=== PATIENT | male | born 1980 | race Caucasian/White ===

== ENCOUNTER 2016-12-12 22:08 | Emergency (ER) | payer BC ==
[~2016-12-12] VITALS: Ht 177.8 cm; Wt 106.1 kg
[~2016-12-12 22:08] MED LIST: CETI10CA PO; IBUP200C92 PO; LEVO750T24 PO; OXYC-12 PO
[2016-12-12] MEDS ORDERED: HYDR-3820 PO (22:24)
--- NOTE | 2016-12-12 22:43 | ED Lower Extremity ---
General Chief Complaint: Lower Extremity Stated Complaint: L ANKLE INJ/SWELLING Nursing Triage Note: c/o L ankle pain after rolling it 8 days ago. patient reports was in [place] when this happened, patient was seen in ED there, patient was given crutches and ankle brace. patient reports was told to follow up his primary but just returned tonight from [place] [facility] Sepsis Screen: No Definite Risk History of Present Illness Time seen by provider: 22:30 Initial Comments Follow up for left ankle sprain 8 days ago in [place]. Patient alternated driving home from [place], when not driving, he elevated the foot on dashboard and reclined his seat Onset: last week Pain/Injury Location: left ankle Method of Injury: twisted Modifying Factors: Improves With Immobilization, Improves With Pain Medication (Hydrocodone 10 mg), Improves With Rest Allergies and Home Medications Allergies Coded Allergies: Soap (Unverified Adverse Reaction, Intermediate, 07/05/13) povidone-iodine (Unverified Adverse Reaction, Intermediate, 07/05/13) Home Medications Cetirizine Hcl 10 Mg Capsule 10 MG PO DAILY PRN PRN (Reported) Hydrocodone/Acetaminophen 1 Each Tablet 1 EACH PO (Reported) Ibuprofen 200 Mg Capsule 600 MG PO PRN (Reported) Constitutional: no symptoms reported see HPI EENTM: no symptoms reported see HPI Respiratory: no symptoms reported see HPI Cardiovascular: no symptoms reported see HPI Gastrointestinal: no symptoms reported see HPI Genitourinary: no symptoms reported Musculoskeletal: see HPI joint pain (Left ankle) Skin: see HPI other (Marked swlling left ankle and foot) Psychiatric/Neurological: No Symptoms Reported See HPI All Other Systems Reviewed Negative Unless Noted: Yes Past Jobncbw-Jqcykw-Sttxim Hx Patient Social History Alcohol Use: Rarely Uses Recreational Drug Use: No Smoking Status: Never a Smoker Recent Foreign Travel: No Contact w/Someone Who Travel: No Recent Infectious Disease Expo: No Recent Hopitalizations: No Physical Abuse Screen: No Sexual Abuse: No Immunizations Up To Date Tetanus Booster (TDap): More than 5yrs Surgeries HX Surgeries: Yes Surgeries: Gallbladder Respiratory Hx Respiratory Disorders: No Cardiovascular Hx Cardiac Disorders: No Neurological Hx Neurological Disorders: No Reproductive System Hx Reproductive Disorders: No Sexually Transmitted Disease: No HIV/AIDS: No Genitourinary Hx Genitourinary Disorders: No Gastrointestinal Hx Gastrointestinal Disorders: Yes (admitted 1 1/2 yr ago for dehydration/ diarrhea) Musculoskeletal Hx Musculoskeletal Disorders: No Endocrine Hx Endocrine Disorders: No HEENT HX ENT Disorders: Yes (tonsils removed as a child) HEENT Disorders: Tonsilitis Cancer Hx Cancer: No Psychosocial Hx Psychiatric Problems: No Integumentary HX Skin/Integumentary Disorder: No Blood Transfusions Hx Blood Disorders: No Reviewed Nursing Assessment Reviewed/Agree w Nursing PMH: Yes Physical Exam Vital Signs Vital Sign - Last 12Hours 12/12/16 22:13 Temp 98.6 Pulse 82 Resp 18 B/P 159/99 Pulse Ox 97 O2 Delivery Room Air Capillary Refill : Less Than 3 Seconds General Appearance: WD/WN no apparent distress Neck: full range of motion normal inspection Cardiovascular: regular rate, rhythm no murmur Respiratory: chest non-tender lungs clear Ankles: left ankle ecchymosis, left ankle limited range of motion (Secondary to pain and swelling), left ankle pain (Soft tissue, lateral ankle), left ankle soft tissue tenderness, left ankle swelling (Marked left foot), left ankle other (Pedal pulses 2+, cap refill toes <2 sec bilat, 2+ anterior drawer. Tender over ATFL, no tenderness med/lat maleolous. Negative Homans. ) Feet: left foot pain, left foot swelling Neurologic/Tendon: normal sensation normal motor functions normal tendon functions Neurologic/Psychiatric: no motor/sensory deficits alert normal mood/affect oriented x 3 Skin: normal color warm/dry Lymphatic: no adenopathy Progress/Results/Core Measures Results/Orders Vital Signs/I&O Vital Sign - Last 12Hours 12/12/16 22:13 Temp 98.6 Pulse 82 Resp 18 B/P 159/99 Pulse Ox 97 O2 Delivery Room Air Blood Pressure Mean: 119 Diagnostic Imaging Diagonstic Imaging: Xray Plain Films/CT/US/NM/MRI: ankle Comments No fx, d/l or mohsen abnormality, joint spaces maintained. Soft tissue swelling noted. Reviewed: Reviewed by Me Departure Impression Impression: Primary Impression: Ankle sprain Qualified Code: S93.412D - Sprain of calcaneofibular ligament of left ankle, subsequent encounter Disposition: HOME, SELF-CARE Condition: Stable Departure-Patient Inst. Decision time for Depature: 22:50 Referrals: WINNIE RICCI MD (PCP/Family) Primary Care Physician Patient Instructions: Ankle Sprain (DC) Add. Discharge Instructions: All discharge instructions reviewed with patient and/or family. Voiced understanding. Ice and elevate left ankle/foot 20 min every 2-4 hours. Ibuprofen 600 mg every 8 hours. If not taking Hydrocodone Prescription, use Tylenol 650 mg every 4-6 hours for pain. Follow up with Dr. Ricci in 2 weeks. Gentle ROM to left ankle. Progress to weight bearing as tolerated and wean off crutches, as tolerated. Consider knee high support hose, for swelling. Copy Copies To 1: WINNIE RICCI MD, AMY ARNP Dec 12, 2016 22:43
[2016-12-12 23:08] VITALS: BP 159/99
--- NOTE | 2016-12-13 08:13 | Diagnostic Imaging Report ---
3 views of the left ankle. INDICATION: Left ankle pain, swelling and redness. FINDINGS: There is no fracture, dislocation or radiopaque foreign body. Ankle mortise is normal in configuration. There is circumferential soft tissue swelling. Calcaneal spur is seen. IMPRESSION: Soft tissue swelling around the ankle with no acute osseous abnormality. Dictated by: Dictated on workstation # [id number]
== END 2016-12-12 23:07 | disposition home or self-care (01) ==
LOC: EDUNIT# 22:08 → ER 22:10
DX: S93.402A Sprain of unspecified ligament of left ankle, initial encounter (principal); X58.XXXA Exposure to other specified factors, initial encounter; Y99.8 Other external cause status
CPT/HCPCS: 73610; 99284

== ENCOUNTER 2017-08-19 17:24 | Emergency (ER) | payer BC ==
[~2017-08-19] VITALS: Ht 175.3 cm; Wt 104.3 kg
[~2017-08-19 17:24] MED LIST changes: +HYDR-3820 PO
--- OUTSIDE RECORDS SUMMARY | 2017-08-19 17:28 | XMS REPORT | Continuity of Care Document ---
Author Author [facility] Organization [facility] Address Unknown Phone Unavailable Allergies Active Description Code Type Severity Reaction Onset Reported/Identified Relationship to Patient Clinical Status Yes povidone-iodine [id number] Drug Allergy Moderate N/A 07/05/2013 Yes Soap [id number] Drug Allergy Moderate N/A 07/05/2013 Medications Problems Date Dx Coded Attending Type Code Diagnosis Diagnosed By 07/07/2013 JEROMY MORENO MD Ot 574.00 CHOLELITH W AC CHOLECYST 12/12/2016 GITA DOUGLAS Ot S93.402A SPRAIN OF UNSPECIFIED LIGAMENT OF LEFT A 12/12/2016 GITA DOUGLAS Ot X58.XXXA EXPOSURE TO OTHER SPECIFIED FACTORS, INI 12/12/2016 GITA DOUGLAS Ot Y99.8 OTHER EXTERNAL CAUSE STATUS 12/14/2016 GITA DOUGLAS Ot S93.402A SPRAIN OF UNSPECIFIED LIGAMENT OF LEFT A 12/14/2016 GITA DOUGLAS Ot X58.XXXA EXPOSURE TO OTHER SPECIFIED FACTORS, INI 12/14/2016 GITA DOUGLAS Ot Y99.8 OTHER EXTERNAL CAUSE STATUS Procedures Code Description Performed By Performed On 51.23 LAPAROSCOPIC CHOLECYSTECTOMY 07/06/2013 Results Encounters ACCT No. Visit Date/Time Discharge Status Pt. Type Provider Facility Loc./Unit Complaint [id number] 12/12/2016 22:10:00 2016 23:07:00 DIS Emergency GITA DOUGLAS [facility] ER L ANKLE INJ/SWELLING [id number] 07/05/2013 17:08:00 2012 14:10:00 DIS Inpatient JEROMY MORENO MD [facility] SURGICAL CHOLEYCYSTITIS
[2017-08-19] MEDS ORDERED: TETANUS,DIPTH,PERTUSS P/F (BOOSTRIX) 0.5 ML VIAL IM ONE (17:45)
[2017-08-19] MEDS ORDERED: RX-TRIMETH/SULFA. 160-800 MG (BACTRIM DS) TAB PPK#2 PO STA (18:13)
[2017-08-19] MEDS ORDERED: RX-TRAMADOL 50 MG (ULTRAM) TAB PPK#4 PO STA (18:13)
[2017-08-19] MEDS ORDERED: RX-MUPIROCIN (BACTROBAN) 2% OINT 22 GM TUBE TOP STA (18:13)
[2017-08-19] MEDS ORDERED: IBUPROFEN 800 MG (MOTRIN) TAB PO ONE (18:15)
[2017-08-19] MEDS ORDERED: NAPR500T4 PO (18:19)
[2017-08-19] MEDS ORDERED: MUPI1OIN6 TP (18:19)
[2017-08-19] MEDS ORDERED: TRAM-42 PO (18:19)
[2017-08-19] MEDS ORDERED: SULF1TAB35 PO (18:19)
--- NOTE | 2017-08-19 18:20 | ED Upper Extremity ---
General Chief Complaint: Laceration Stated Complaint: L HAND MIDDLE FINGER LACERATION FROM SAW Nursing Triage Note: PT CUT MIDDLE FINGER L HAND W SAW Nursing Sepsis Screen: No Definite Risk Source: patient History of Present Illness Time seen by provider: 17:50 Initial Comments PT C/O INJURY TO LEFT MIDDLE FINGER JUST PRIOR TO ARRIVAL--CUT IT ON A TABLE SAW NO PARESTHESIAS OR MOTOR DEFICITS PT IS RIGHT HANDED NO PRIOR INJURY TO THIS FINGER, OTHER THAN MINOR LACERATIONS PCP: DR. RICCI Allergies and Home Medications Allergies Coded Allergies: Soap (Unverified Adverse Reaction, Intermediate, 07/05/13) povidone-iodine (Unverified Adverse Reaction, Intermediate, 07/05/13) Home Medications Mupirocin 1 Gm Oin.pf.june, 1 GM TP BID, #22 Prescribed by: MICHAEL LOPEZ on 08/19/171818 Naproxen 500 Mg Tablet, 500 MG PO BID, #20 Prescribed by: MICHAEL LOPEZ on 08/19/171818 Sulfamethoxazole/Trimethoprim 1 Each Tablet, 1 EACH PO BID, #20 Prescribed by: MICHAEL LOPEZ on 08/19/171818 Tramadol HCl 50 Mg Tablet, 50 MG PO Q4H, #10 Prescribed by: MICHAEL LOPEZ on 08/19/171818 Constitutional: no symptoms reported Musculoskeletal: see HPI Skin: see HPI Psychiatric/Neurological: No Symptoms Reported Past Rzhimbd-Tgbmik-Avxiyl Hx Patient Social History Alcohol Use: Rarely Uses Recreational Drug Use: No Smoking Status: Never a Smoker Recent Foreign Travel: No Contact w/Someone Who Travel: No Recent Infectious Disease Expo: No Recent Hopitalizations: No Physical Abuse: No Sexual Abuse: No Immunizations Up To Date Tetanus Booster (TDap): More than 5yrs Surgeries History of Surgeries: Yes Surgeries: Gallbladder Respiratory History of Respiratory Disorde: No Cardiovascular History of Cardiac Disorders: No Neurological History of Neurological Disord: No Reproductive System Hx Reproductive Disorders: No Sexually Transmitted Disease: No HIV/AIDS: No Gastrointestinal History of Gastrointestinal Di: Yes (admitted 1 1/2 yr ago for dehydration/ diarrhea) Musculoskeletal History of Musculoskeletal Dis: No Endocrine History of Endocrine Disorders: No HEENT HEENT Disorders: Tonsilitis Cancer History of Cancer: No Psychosocial History of Psychiatric Problem: No Suicide Risk Score: 0 Integumentary History of Skin or Integumenta: No Blood Transfusions History of Blood Disorders: No Physical Exam Vital Signs Vital Sign - Last 12Hours 08/19/17 17:30 Temp 96.1 Pulse 76 Resp 18 B/P (MAP) 136/92 Pulse Ox 95 Capillary Refill : Less Than 3 Seconds General Appearance: WD/WN, no apparent distress Hand: Left (MIDDLE FINGERTIP--TISSUE MACERATION/SKIN AVULSION WITH MEDIAL / DISTAL CORNER OF NAIL AVULSED. DISTAL MOTOR/SENSORY/VASCULAR INTACT. 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, no motor/sensory deficits, alert, normal mood/affect, oriented x 3 Skin: normal color, warm/dry, other ( ABOVE) Progress/Results/Core Measures Results/Orders My Orders Orders - MICHAEL LOPEZ DO Rx-Trimeth/Sulfameth Ds Tab (Rx-Bactrim/ (08/19/17 18:13) Rx-Mupirocin 2% Oint (Rx-Bactroban) (08/19/17 18:13) Rx-Tramadol Hcl (Rx-Ultram) (08/19/17 18:13) Ibuprofen Tablet (Motrin Tablet) (08/19/17 18:15) Medications Given in ED Vital Signs/I&O Blood Pressure Mean: 107 Progress Note : Progress Note NO REPAIR REQUIRED--TISSUE AVULSED/MACERATED WOUND CLEANSED AND DRESSED Diagnostic Imaging Comments XRAYS FINGER--NO BONY INJURY OR FOREIGN BODY, + SOFT TISSUE INJURY--PER RADIOLOGIST REPORT @ 1832 Reviewed: Reviewed by Me Departure Impression Impression: Primary Impression: Laceration of left middle finger with damage to nail Additional Impression: Obqheewcat-tclmswazw-vyiiodi (DPT) vaccination administered at current visit Disposition: 01 HOME, SELF-CARE Condition: Stable Departure-Patient Inst. Referrals: WINNIE RICCI MD (PCP/Family) Primary Care Physician Patient Instructions: Diphtheria and Tetanus Toxoids, and Acellular Pertussis Vaccine, SKIN AVULSION, Wound Care (DC) Add. Discharge Instructions: CLEAN WOUND 2-3 TIMES A DAY WITH ANTIBACTERIAL SOAP AND WATER, APPLY ANTIBIOTIC OINTMENT AND FRESH DRESSING ICE TO AREA AT 20 MINUTE INTERVALS ELEVATE HAND MUCH POSSIBLE FOLLOW UP WITH YOUR DR IN 3-4 DAYS FOR WOUND CHECK All discharge instructions reviewed with patient and/or family. Voiced understanding. Scripts Tramadol HCl (Ultram) 50 Mg Tablet 50 MG PO Q4H, #10 TAB Prov: MICHAEL LOPEZ DO 08/19/17 Naproxen (Naproxen) 500 Mg Tablet 500 MG PO BID, #20 TAB Prov: MICHAEL LOPEZ DO 08/19/17 Mupirocin (Mupirocin) 1 Gm Oin.pf.june 1 GM TP BID, #22 TUBE Prov: MICHAEL LOPEZ DO 08/19/17 Sulfamethoxazole/Trimethoprim (Bactrim Ds Tablet) 1 Each Tablet 1 EACH PO BID, #20 TAB Prov: MICHAEL LOPEZ DO 08/19/17 MICHAEL LOPEZ DO Aug 19, 2017 18:20
--- NOTE | 2017-08-19 18:29 | Diagnostic Imaging Report ---
EXAMINATION: Left hand radiograph, single view. Left third finger, 2 additional views. COMPARISON: None. HISTORY: 37-year-old male, injury from wood working. Attention third finger. FINDINGS: There is a mild deformity of the tip of the third distal phalanx with adjacent soft tissue swelling which may relate to site of soft tissue injury. There is no identified radiopaque foreign body. There is no acute fracture or dislocation. Joint spaces are well preserved. IMPRESSION: 1. Findings suggesting soft tissue injury at the level of the tip of the third distal phalanx. 2. No radiopaque foreign body or acute bony abnormality. Dictated by: Dictated on workstation # [id number]
[2017-08-19 19:04] VITALS: BP 136/92
== END 2017-08-19 19:04 | disposition home or self-care (01) ==
LOC: EDUNIT# 17:24 → ER 17:26
DX: S61.213A Laceration without foreign body of left middle finger without damage to nail, initial encounter (principal); Z23 Encounter for immunization; W29.8XXA Contact with other powered hand tools and household machinery, initial encounter
CPT/HCPCS: 73140; 90471; 90715; 99284

== ENCOUNTER 2017-11-03 17:56 | Emergency (ER) | payer BC ==
[~2017-11-03] VITALS: Ht 175.3 cm; Wt 104.3 kg
[~2017-11-03 17:56] MED LIST changes: +MUPI1OIN6 TP; +NAPR500T4 PO; +SULF1TAB35 PO; +TRAM-42 PO
[2017-11-03] MEDS ORDERED: LIDOCAINE 1% INJ 50 ML (XYLOCAINE) VIAL IJ ONE (18:15)
--- NOTE | 2017-11-03 18:31 | ED Upper Extremity ---
General Chief Complaint: Laceration Stated Complaint: L THUMB LAC Nursing Triage Note: was washing bottles and cut pad of thumb with parring knife., bleeding controlled Nursing Sepsis Screen: No Definite Risk Source: patient History of Present Illness Time seen by provider: 18:00 Initial Comments C/O LACERATION TO LEFT THUMB OCCURRED AT 1745 AT HOME PT WAS WASHING A GLASS BOTTLE, AND WAS REMOVING A LABEL FROM THE BOTTLE WITH A PARING KNIFE AND THE KNIFE SLIPPED AND CUT HIS RIGHT THUMB NO PARESTHESIAS OR MOTOR DEFICITS PT IS RIGHT HANDED PT IS UTD ON TETANUS VACCINATION Allergies and Home Medications Allergies Coded Allergies: Soap (Unverified Adverse Reaction, Intermediate, 11/03/17) povidone-iodine (Unverified Adverse Reaction, Intermediate, 07/05/13) Constitutional: no symptoms reported Musculoskeletal: see HPI Skin: see HPI Psychiatric/Neurological: No Symptoms Reported Past Ltnptee-Lrhqdk-Pbynht Hx Patient Social History Alcohol Use: Occasionally Uses Recreational Drug Use: No Smoking Status: Never a Smoker Recent Foreign Travel: No Contact w/Someone Who Travel: No Recent Infectious Disease Expo: No Recent Hopitalizations: No Physical Abuse: No Sexual Abuse: No Mistreated: No Fear: No Immunizations Up To Date Tetanus Booster (TDap): Less than 5yrs Surgeries History of Surgeries: Yes Surgeries: Gallbladder Respiratory History of Respiratory Disorde: No Cardiovascular History of Cardiac Disorders: No Neurological History of Neurological Disord: No Reproductive System Hx Reproductive Disorders: No Sexually Transmitted Disease: No HIV/AIDS: No Gastrointestinal History of Gastrointestinal Di: Yes (admitted 1 1/2 yr ago for dehydration/ diarrhea; S/P LES) Gastrointestinal Disorders: Gall Bladder Disease Musculoskeletal History of Musculoskeletal Dis: No Endocrine History of Endocrine Disorders: No HEENT History of HEENT Disorders: Yes HEENT Disorders: Tonsilitis Cancer History of Cancer: No Psychosocial History of Psychiatric Problem: No Suicide Risk Score: 0 Integumentary History of Skin or Integumenta: No Blood Transfusions History of Blood Disorders: No Physical Exam Vital Signs Vital Sign - Last 12Hours 11/03/17 17:59 Pulse 85 Resp 18 B/P (MAP) 145/102 (116) Pulse Ox 96 Capillary Refill : Less Than 3 Seconds General Appearance: WD/WN, no apparent distress Hand: Left (THUMB), laceration (1.5 CM LACERATION TO PAD OF LEFT THUMB. MOTOR/ SENSORY/VASCULAR INTACT. 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, no motor/sensory deficits, alert, normal mood/affect, oriented x 3 Skin: normal color, warm/dry, other (LACERATION NOTED ABOVE) Laceration Repair : Other Wound Location LEFT THUMB Wound Length (cm): 1.5 Wound's Depth, Shape: linear, sub Q Wound Explored: clean Anesthesia: 1% Lidocaine Suture: Ethlion Suture Size: 4-0 Number of Sutures: 3 Sterile Dressing Applied?: Yes Progress/Results/Core Measures Results/Orders My Orders Orders - MICHAEL LOPEZ DO Lidocaine 1% (Xylocaine 1%) (11/03/17 18:15) Vital Signs/I&O Vital Sign - Last 12Hours 11/03/17 17:59 Pulse 85 Resp 18 B/P (MAP) 145/102 (116) Pulse Ox 96 Blood Pressure Mean: 116 Departure Impression Impression: Primary Impression: Laceration of left thumb Disposition: 01 HOME, SELF-CARE Condition: Stable Departure-Patient Inst. Referrals: WINNIE RICCI MD (PCP/Family) Primary Care Physician Patient Instructions: Laceration Repair With Stitches (DC) Add. Discharge Instructions: CLEAN WOUND TWICE A DAY WITH SOAP AND WATER ON A Q-TIP, OIHERWISE KEEP CLEAN AND DRY TYLENOL AND MOTRIN NEEDED FOR PAIN SUTURES OUT IN 10 DAYS--RETURN TO ER FOR REMOVAL All discharge instructions reviewed with patient and/or family. Voiced understanding. MICHAEL LOPEZ DO Nov 03, 2017 18:31
[2017-11-03 18:40] VITALS: BP 149/99
== END 2017-11-03 18:40 | disposition home or self-care (01) ==
LOC: EDUNIT# 17:56 → ER 17:57
DX: S61.012A Laceration without foreign body of left thumb without damage to nail, initial encounter (principal); Z87.09 Personal history of other diseases of the respiratory system; Z87.19 Personal history of other diseases of the digestive system; W26.0XXA Contact with knife, initial encounter
CPT/HCPCS: 12011

== ENCOUNTER 2017-11-14 08:06 | Emergency (ER) | payer BC ==
[~2017-11-14] VITALS: Ht 177.8 cm; Wt 77.1 kg
[2017-11-14 08:15] VITALS: BP 126/63
== END 2017-11-14 08:15 | disposition home or self-care (01) ==
LOC: EDUNIT# 08:06 → ER 08:08
DX: S61.011D Laceration without foreign body of right thumb without damage to nail, subsequent encounter (principal); X58.XXXD Exposure to other specified factors, subsequent encounter

== ENCOUNTER 2022-05-04 15:56 | Emergency (ER) | payer BC ==
[~2022-05-04] VITALS: Ht 177.8 cm; Wt 113.3 kg
[~2022-05-04 15:56] MED LIST changes: +ACHYD1T PO; -HYDR-3820 PO; +NAPR-915 PO; -NAPR500T4 PO; -SULF1TAB35 PO; +SULF1TAB38 PO
[2022-05-04 16:00] VITALS: BP 167/103
--- NOTE | 2022-05-04 16:19 | ED Upper Extremity ---
General Chief Complaint: Laceration Stated Complaint: HAND INJURY Source: patient Exam Limitations: no limitations History of Present Illness Date Seen by Provider: May 04, 2022 Time Seen by Provider: 16:19 Initial Comments This is a well-appearing 42-year-old male who presented to the ER via POV with complaints of laceration to his left index finger just proximal to lateral aspect of MCP joint. States that he was working with a chisel when he accidentally hit himself in the finger. Bleeding controlled with direct pressure. Tetanus is up to date within last 5 years. Allergies and Home Medications Allergies Coded Allergies: Soap (Unverified Adverse Reaction, Intermediate, 11/03/17) povidone-iodine (Unverified Adverse Reaction, Intermediate, 07/05/13) Patient Home Medication List Home Medication List Reviewed: Yes Review of Systems Constitutional: no symptoms reported Musculoskeletal: see HPI Skin: see HPI Past Grllsoy-Yohreq-Efgxiq Hx Patient Social History Tobacco Use?: No Use of E-Cig and/or Vaping dev: No Substance use?: No Alcohol Use?: No Pt feels they are or have been: No Immunizations Up To Date Tetanus Booster (TDap): Less than 5yrs First/Initial COVID19 Vaccinat: y Second COVID19 Vaccination Fred: y COVID19 Vaccine Teacher Lip Reading: silvina Past Medical History Surgeries: Yes Gallbladder Respiratory: No Cardiac: No Neurological: No Reproductive Disorders: No Sexually Transmitted Disease: No HIV/AIDS: No Gastrointestinal: Yes (admitted 1 1/2 yr ago for dehydration/diarrhea; S/P LES) Gall Bladder Disease Musculoskeletal: No Endocrine: No HEENT: Yes Tonsilitis Cancer: No Psychosocial: No Integumentary: No Blood Disorders: No Physical Exam Vital Signs Vital Signs - First Documented 05/04/22 16:00 Temp 35.6 Pulse 74 Resp 18 B/P (MAP) 167/103 (124) Pulse Ox 98 Capillary Refill : Height, Weight, BMI Height: 5'10.00" Weight: 170lbs. 0.0oz. 77.274138wa; 21.09 BMI Method:Estimated General Appearance: WD/WN, no apparent distress Respiratory: normal breath sounds, no respiratory distress, no accessory muscle use Elbow/Forearm: normal inspection, non-tender, no evidence of injury Wrist: Yes normal inspection, Yes non-tender, Yes no evidence of injury Hand: Left (index finger proximal to MCP joint 5mm linear laceration. ) Neurologic/Tendon: normal sensation, normal motor functions, normal tendon functions Neurologic/Psychiatric: no motor/sensory deficits, alert, normal mood/affect, oriented x 3 Procedures/Interventions Other Wound Location left index finger Wound Length (cm): 0.5 Wound's Depth, Shape: superficial, linear Wound Explored: clean Betadine Prep?: Yes Suture: Prolene Suture Size: 5-0 Number of Sutures: 1 Progress/Results/Core Measures Results/Orders My Orders Orders - JEAN CARLOS RUVALCABA APRN Finger(S) (05/04/22 16:17) Vital Signs/I&O 05/04/22 16:00 Temp 35.6 Pulse 74 Resp 18 B/P (MAP) 167/103 (124) Pulse Ox 98 Diagnostic Imaging Diagonstic Imaging: Xray Comments [facility], [place] NAME: MOISE HARVEY [facility] REC#: [id number] PT STATUS: REG ER : 1980 PHYSICIAN: JEAN CARLOS RUVALCABA APRN ADMIT DATE: 05/04/22/ER Draft Date of Exam:05/04/22 FINGER(S) INDICATION: Laceration to the index finger. FINDINGS: Three views of 2nd finger show no fracture, dislocation or retained opaque foreign body. IMPRESSION: No radiographic abnormality. Dictated on workstation # [id number] Dict: 05/04/22 1631 Trans: 05/04/22 1632 [facility] [id number] Interpreted by: AGUILA BOURNE Electronically signed by: Departure Impression Primary Impression: Laceration of index finger of left hand without complication Disposition: 01 HOME, SELF-CARE Condition: Improved Departure-Patient Inst. Decision time for Depature: 16:23 Referrals: WINNIE RICCI MD (PCP) Primary Care Physician Patient Instructions: Laceration Repair With Stitches ED Add. Discharge Instructions: Plan: 1. Return in 7 days for suture removal. 2. May wash gently with mild soap and water, pat dry, cover with bandage if working in soiled area. 3. No bathing or swimming, do not soak finger while suture intact. 4. Monitor for signs of infection: redness, swelling, drainage, increased pain. Follow up with your doctor or return if symptoms develop. 5. Return for any new, concerning, or worsening symptoms. All discharge instructions reviewed with patient and/or family. Voiced understanding. JEAN CARLOS RUVALCABA [employer] May 04, 2022 16:19
--- NOTE | 2022-05-04 16:33 | Diagnostic Imaging Report ---
INDICATION: Laceration to the index finger. FINDINGS: Three views of 2nd finger show no fracture, dislocation or retained opaque foreign body. IMPRESSION: No radiographic abnormality. Dictated by: Dictated on workstation # [id number]
== END 2022-05-04 16:45 | disposition home or self-care (01) ==
LOC: EDUNIT# 15:56 → ER 15:58
DX: S61.211A Laceration without foreign body of left index finger without damage to nail, initial encounter (principal); W27.0XXA Contact with workbench tool, initial encounter
CPT/HCPCS: 73140

== ENCOUNTER 2022-05-11 08:41 | Emergency (ER) | payer BC | END 2022-05-11 08:55 | disposition home or self-care (01) | LOC: EDUNIT# 08:41 → ER 08:43 | DX: Z48.02 Encounter for removal of sutures (principal) ==

== ENCOUNTER 2023-05-19 20:31 | Outpatient (CLI) | payer BC | END 2023-05-20 06:45 | disposition home or self-care (01) | LOC: SLEEP 20:31 | PROVIDERS: ATTEND Nurse Practitioner Family | DX: G47.33 Obstructive sleep apnea (adult) (pediatric) (principal); G47.9 Sleep disorder, unspecified; I10 Essential (primary) hypertension | CPT/HCPCS: 95811 ==